=== PATIENT | female | born 1985 | race Two or more races ===

== ENCOUNTER 2018-08-31 12:15 | Outpatient (CLI) | payer OTHER | END 2018-08-31 12:51 | disposition home or self-care (01) | LOC: LAB 12:15 | DX: E03.8 Other specified hypothyroidism (principal); E78.2 Mixed hyperlipidemia; R60.0 Localized edema ==

== ENCOUNTER → 2018-09-03 | Outpatient (CLI) | payer OTHER | END | disposition home or self-care (01) | LOC: NUCLEAR 09:00 | DX: R60.0 Localized edema (principal); M79.606 Pain in leg, unspecified ==